=== PATIENT | male | born 1990 | race African-American/Black ===

== ENCOUNTER 2017-02-17 22:26 | Emergency (ER) | payer OTHER ==
[~2017-02-17] VITALS: Ht 177.8 cm; Wt 94.3 kg
[2017-02-18] MEDS ORDERED: IBUPROFEN 600600 M1 PO (01:24)
[2017-02-18] MEDS ORDERED: SENOKOT-S1 TA1 PO (01:24)
[2017-02-18] MEDS ORDERED: NORCO 5-325 TA1 EACH PO (01:24)
[2017-02-18] MEDS ORDERED: NEOSPORIN + P28.3 GM TP (01:24)
[2017-02-18 01:54] VITALS: BP 145/87
== END 2017-02-18 01:55 | disposition home or self-care (01) ==
LOC: ER 22:26
DX: S81.012A Laceration without foreign body, left knee, initial encounter (principal); S40.812A Abrasion of left upper arm, initial encounter; S40.811A Abrasion of right upper arm, initial encounter; S60.512A Abrasion of left hand, initial encounter; S60.511A Abrasion of right hand, initial encounter; F17.210 Nicotine dependence, cigarettes, uncomplicated; V23.4XXA Motorcycle driver injured in collision with car, pick-up truck or van in traffic accident, initial encounter; Y93.89 Activity, other specified; Y92.89 Other specified places as the place of occurrence of the external cause; Y99.8 Other external cause status

== ENCOUNTER 2017-03-03 12:08 | Emergency (ER) | payer OTHER ==
[~2017-03-03] VITALS: Ht 177.8 cm; Wt 94.3 kg
[~2017-03-03 12:08] MED LIST: IBUPROFEN 600600 M1 PO; NEOSPORIN + P28.3 GM TP; NORCO 5-325 TA1 EACH PO; SENOKOT-S1 TA1 PO
[2017-03-03 13:50] VITALS: BP 127/83
== END 2017-03-03 13:52 | disposition home or self-care (01) ==
LOC: ER 12:08
DX: S81.012D Laceration without foreign body, left knee, subsequent encounter (principal); X58.XXXD Exposure to other specified factors, subsequent encounter; Y92.89 Other specified places as the place of occurrence of the external cause; Y99.8 Other external cause status